=== PATIENT | male | born 1975 | race Two or more races ===

== ENCOUNTER 2020-07-08 15:11 | Inpatient (IN) | payer OTHER ==
[~2020-07-08] VITALS: Ht 188 cm; Wt 98.0 kg
[2020-07-08] MEDS ORDERED: SODIUM CHLORIDE 0.9% 1,000 ML IV ONE (15:12)
[2020-07-08 16:26] LABS: Basophils # (auto) 0 10 ^3/uL (0-0.2); Basophils % (auto) 0.7 % (0.0-2.0); Eosinophils # (auto) 0.1 10 ^3/uL (0-0.8); Hematocrit 46.7 % (41.0-53.0); Hemoglobin 15.6 g/dL (13.5-17.5); Lymphocytes # (auto) 2.1 10 ^3/uL (0.4-5.4); Lymphocytes % (auto) 43.5 % (10.0-50.0); Mean Corpuscular Hemoglobin 29.7 pg (28.0-32.0); Mean Corpuscular Hgb Conc. 33.5 g/dL (32.0-36.0); Mean Corpuscular Volume 88.8 fL (80.0-100.0); Monocytes # (auto) 0.3 10 ^3/uL (0-1.3); Monocytes % (auto) 6.1 % (0.0-12.0); Neutrophils # (auto) 2.4 10 ^3/uL (1.6-8.6); Neutrophils % (auto) 47.7 % (37.0-80.0); Platelet Count (auto) 262 10^3/uL (140-450); Red Blood Cells 5.26 10^6/uL (4.5-5.90); White Blood Cell 4.9 10^3/uL (4.4-10.8)
[2020-07-08] MEDS ORDERED: IOHEXOL 300 MG/ML 100ML BOTTLE IJ ONE (16:34)
[2020-07-08 16:43] LABS: INR 1.05 (0.9-1.15); Partial Thromboplastin Time 27.6 sec (23.0-31.2)
[2020-07-08 16:47] LABS: Albumin 4.5 g/dL (3.4-5.0); Anion Gap 5 (5-15); Blood Urea Nitrogen 12 mg/dL (7-18); Calcium 9.1 mg/dL (8.5-10.1); Carbon Dioxide 28 mmol/L (21-32); Chloride 104 mmol/L (98-107); Glucose 96 mg/dL (74-106); Potassium 4.2 mmol/L (3.5-5.1); Sodium 137 mmol/L (136-145)
[2020-07-08 16:55] LABS: Alanine Aminotransferase 31 U/L (16-61); Alkaline Phosphatase 80 U/L (45-117); Aspartate Aminotransferase 24 U/L (15-37); BUN/Creatinine Ratio 11.2; Bilirubin, Total 0.6 mg/dL (0.2-1.0); GFR African American 96 mL/min; GFR Non-African American 79 mL/min; Total Protein 8.3 g/dL (6.4-8.2)
[2020-07-08] MEDS ORDERED: VANCOMYCIN PER PHARMACY 0 MG IV SCH (18:45)
[2020-07-08 21:38] VITALS: BP 111/81
[2020-07-08] MEDS ORDERED: VANCOMYCIN 1GM/250ML 250 ML IV SCH (22:00)
--- NOTE | 2020-07-08 22:00 | NUR ---
[facility] Patient oriented to RIK MENESES RN primary RN, room 286. Patient weighed by bedscale and encouraged to call if they need something. Pt is on room air with even and unlabored respirations. Pt reporting pain in his right side 8/10. Will medicate for pain as ordered. Bed locked, in lowest position, call light within reach, side rails up x2. All questions and concerns addressed, patient verbalized understanding. Will continue to monitor Q1hr and PRN.
[2020-07-08] MEDS: HYDROcodone-ACET 10/325MG TAB PO PRN (22:28)
[2020-07-08 23:20] VITALS: BP 120/64
[2020-07-09 05:00] VITALS: BP 98/48
--- NOTE | 2020-07-09 05:30 | NUR ---
Pain assessment Did not give pain meds at this time due to BP 98/48 pulse 49. Pt verbalized understanding. Repositioned pt with pillows. Will continue to monitor
[2020-07-09] MEDS: ENOXAPARIN SOD 40 MG/0.4 ML SYRINGE SC SCH (10:35)
[2020-07-09 10:52] LABS: Urine WBC None Seen /hpf (0 - 3)
[2020-07-09 11:01] LABS: Urine Bacteria NONE SEEN /hpf (None Seen); Urine Blood Negative /uL (Negative); Urine Specific Gravity 1.021 (1.001-1.035)
--- NOTE | 2020-07-09 14:00 | NUR ---
COVID 19 SPECIMENS COLLECTED; SENT TO LAB.
[2020-07-09 18:59] VITALS: BP 118/73
[2020-07-09] MEDS: HYDROcodone-ACET 10/325MG TAB PO PRN (19:02)
[2020-07-09 22:00] VITALS: BP 114/67
[2020-07-10 02:06] LABS: Hematocrit 41.8 % (41.0-53.0); Hemoglobin 14.5 g/dL (13.5-17.5); Mean Corpuscular Hemoglobin 30.6 pg (28.0-32.0); Mean Corpuscular Hgb Conc. 34.8 g/dL (32.0-36.0); Mean Corpuscular Volume 88.2 fL (80.0-100.0); Platelet Count (auto) 229 10^3/uL (140-450); Red Blood Cells 4.74 10^6/uL (4.5-5.90); Red Cell Distribution Width 12.8 % (11.8-14.3); White Blood Cell 4.5 10^3/uL (4.4-10.8)
[2020-07-10 02:09] LABS: Band Neutrophils % (manual) 0; Basophils % (manual) 0 (0.0-2.0); Blast Cells 0; Eosinophils % (manual) 0 (0-7); Metamyelocytes % 0; Myelocytes % 0; Promyelocytes % 0; Reactive Lymphocytes 0
[2020-07-10 02:22] LABS: Lymphocytes % (manual) 66 (10.0-50.0); Monocytes % (manual) 6 (0-12)
[2020-07-10 02:25] LABS: INR 1.08 (0.9-1.15)
[2020-07-10 02:26] LABS: BUN/Creatinine Ratio 11.8; Calcium 8.2 mg/dL (8.5-10.1); Potassium 3.6 mmol/L (3.5-5.1)
[2020-07-10 05:00] VITALS: BP 99/54
[2020-07-10] MEDS ORDERED: ePHEDrine SULFATE 50 MG/ML AMP IV ONE (07:13)
[2020-07-10] MEDS ORDERED: LIDOCAINE 1% HCL (LOCAL ANESTH.) INJ 20ML MDV ONE (07:23)
[2020-07-10] MEDS ORDERED: fentaNYL CITRATE 100 MCG/2 ML VL ONE (07:35)
[2020-07-10] MEDS ORDERED: DexAMETHasone SOD PHOS 10MG/1ML VIAL INJ ONE (07:35)
[2020-07-10] MEDS ORDERED: MIDAZOLAM HCL 1MG/1ML-2 ML VIAL ONE (07:35)
[2020-07-10] MEDS ORDERED: PROPOFOL 10 MG/ML 20 ML IV ONE (07:35)
[2020-07-10] MEDS ORDERED: MEPERIDINE HCL (25 MG/ML) 1ML VIAL ONE (07:36)
[2020-07-10] MEDS ORDERED: KETAMINE HCL 10 ML ONE (07:55)
[2020-07-10] MEDS ORDERED: ePHEDrine SULFATE 50 MG/ML AMP IV PRN (09:00)
[2020-07-10] MEDS ORDERED: MIDAZOLAM HCL 1MG/1ML-2 ML VIAL IV PRN (09:00)
[2020-07-10] MEDS ORDERED: HYDROmorphone HCL 2 MG/ML VL IV PRN (09:00)
[2020-07-10] MEDS ORDERED: ONDANSETRON HCL 4 MG/2 ML VIAL IV PRN (09:00)
[2020-07-10] MEDS ORDERED: MORPHINE SULFATE 4 MG/ML SYR/VIAL IV PRN (09:00)
[2020-07-10] MEDS ORDERED: LABETALOL HCL 5 MG/ML 4ML SYRINGE IV PRN (09:00)
[2020-07-10] MEDS: ENOXAPARIN SOD 40 MG/0.4 ML SYRINGE SC SCH (10:00)
[2020-07-10 13:01] VITALS: BP 114/67
[2020-07-10 17:00] VITALS: BP 128/72
[2020-07-10] MEDS: HYDROcodone-ACET 10/325MG TAB PO PRN (20:58)
[2020-07-10 22:00] VITALS: BP 110/78
[2020-07-11 05:00] VITALS: BP 105/63
[2020-07-11 09:00] VITALS: BP 113/70
[2020-07-11 13:00] VITALS: BP 95/55
--- NOTE | 2020-07-11 16:29 | NUR ---
Paged Patient is getting no medications, no labs, no treatments/procedures. Paged to find out if he will be D/C'd today.
[2020-07-11 17:00] VITALS: BP 115/63
--- NOTE | 2020-07-11 19:10 | NUR ---
Opening Shift Note Received report from za Moody RN. Assumed care of patient, awake and alert. No S/S of distress/SOB or pain. Guards as bedside. Instructed on POC and to call for assist PRN, will continue to monitor for changes Q1hr and PRN. Bed placed in lowest position and call light within reach.
[2020-07-11 22:00] VITALS: BP 104/66
--- NOTE | 2020-07-12 | NUR ---
Dressing to right back is clean dry and intact.
[2020-07-12 05:00] VITALS: BP 102/62
[2020-07-12 09:00] VITALS: BP 105/64
--- NOTE | 2020-07-12 12:19 | NUR ---
Nutrition Assessment Notes please see attached link for complete assessment [employer] needs BW 98 [id number] kcal (23-25 kcal/kg BW), Est protein needs: 98-107g (1.0-1.1g/kg BW). Will reassess prn. Addendum: 07/12/20 at [address] Amended: Links added.
--- NOTE | 2020-07-12 12:30 | NUR ---
Hospitalist MD Morales at bedside, aware of patient status. New orders for DC received. Will carry out new orders
[2020-07-12 12:39] VITALS: BP 99/56
--- NOTE | 2020-07-12 15:10 | NUR ---
Discharge instructions given to guards as ordered. Encourage to follow up with PMD as instructed. All questions and concerns addressed. Patient verbalized understanding. Medication reconciliation form completed and copy given to patient. IV removed with catheter intact, pressure dressing applied. Patient waiting in room to be arranged by correction guards. No distress noted at this time.
[2020-07-17 09:04] VITALS: BP 125/64
== END 2020-07-12 15:00 | DRG 830 ==
LOC: ER 15:11 → EEVIPCON 15:11 → OVERFLOW 15:12 → WEST WING 21:38
PROVIDERS: ADMIT Internal Medicine; ATTEND Internal Medicine
PROC: 0JB70ZZ Excision of Back Subcutaneous Tissue and Fascia, Open Approach (ICD-10-PCS; principal; 2020-07-10 07:15)
DX: D49.89 Neoplasm of unspecified behavior of other specified sites (principal); R22.2 Localized swelling, mass and lump, trunk; D18.00 Hemangioma unspecified site; Z20.828 Contact with and (suspected) exposure to other viral communicable diseases
CPT/HCPCS: 36415; 71260; 80048; 80053; 81001; 84484; 85007; 85025; 85027; 85610; 85730; 87081; 87426; G0378; J1100; J2001; J2250; J2704